=== PATIENT | female | born 1965 | race Asian ===

== ENCOUNTER 2020-01-15 17:33 | Inpatient (IN) | payer MEDICAID ==
[~2020-01-15] VITALS: Ht 154.9 cm; Wt 50.3 kg
--- NOTE | 2020-01-15 18:25 | NUR ---
HANSARD REPORTER ADMITTING NOTES PT TRANSPORTED TO UNIT AT THIS TIME VIA GURNEY BY TWO EMT PERSONNELS. REPORT RECEIVED FROM JANNETTE OWENS @ [facility]. PT AOX4. PT ABLE TO VERBALIZE NEEDS. NO SOB NOTED, NO S/S OF ANY ACUTE DISTRESS NOTED. NO C/O PAIN AT THIS TIME. RESPIRATIONS ARE EVEN AND UNLABORED WITH EQUAL RISE AND FALL IN CHEST. PT STABLE ON RA. LUNGS ARE CLEAR TO AUSCULTATION, ACTIVE BOWEL SOUNDS IN ALL FOUR QUADRANTS. ABD IS SOFT AND NON TENDER. PULSES ARE PRESENT BILATERALLY. GOOD CIRCULATION NOTED. CAPILLARY REFILL <3SECONDS. SKIN IS WARM TO TOUCH. SKIN IS INTACT. IV ACCESS NOTED IN LAC G#20, INTACT, PATENT AND FLUSHING WELL. BELONGING ACCOUNTED FOR, SIGNED BY PT AND FILED IN CHART. PT ORIENTED TO ROOM AND KNOWS TO CALL FOR ASSISTANCE BEFORE GETTING OUT OF BED. SAFETY PRECAUTION IN PLACE AND MAINTAINED AT ALL TIMES. BED IN LOWEST LOCKED POSITION, HOB ELEVATED, SIDE RAILS UP X 2, CALL LIGHT WITHIN REACH. WILL ENDORSE TO NIGHT NURSE FOR YAZ
[2020-01-15] MEDS ORDERED: MULT-594 PO (18:29)
[2020-01-15] MEDS ORDERED: ASCO-352 PO (18:29)
[2020-01-15] MEDS ORDERED: IBUP-23 PO (18:29)
--- NOTE | 2020-01-15 18:30 | NUR ---
PT ON EXTERNAL TELE CANNERY WORKER READING SR IN THE 60S WITH PVCS. WILL ENDORSE TO PIECE DYER NURSE FOR YAZ
--- NOTE | 2020-01-15 19:30 | NUR ---
PERFORATOR TYPIST OPEN NOTES PT IS WATCHING TV IN BED. A/O X4. ON RA, NO SOB/ ACUTE RESPIRATORY DISTRESS NOTED. IV IN L AC#20G IS PATENT AND INTACT. PT DENIES ANY PAIN AT THE MOMENT. BED IS IN LOWEST LOCKED POSITION WITH SIDE RAILS UP X2, SEMI FOWLERS. CALL LIGHT IS WITHIN REACH. WILL CONTINUE TO MONITOR.
--- NOTE | 2020-01-15 19:50 | NUR ---
AMMONIA SOLUTION PREPARER NOTES NOTIFIED DR. LR REGARDING DIRECT ADMIT. INFORMED HIM THAT THE PT CAME IN FROM [place] AROUND 182, Dx WAS CHEST PAIN AND HAS HX OF HTN. MD REPLIED OK. AWAITING ANY ORDERS FROM .
[2020-01-15 20:00] VITALS: BP 140/94
[2020-01-15] MEDS ORDERED: ZOLPIDEM TARTRATE 5 MG TABLET PO PRN (20:30)
[2020-01-15] MEDS ORDERED: MAG HYDROX/AL HYDROX/SIMETH 30 ML UDC PO PRN (20:30)
[2020-01-15] MEDS ORDERED: IBUPROFEN 200 MG TABLET PO PRN (20:30)
[2020-01-15] MEDS ORDERED: HYDROCODONE/APAP 5/325MG TABLET PO PRN (20:30)
[2020-01-15] MEDS ORDERED: ACETAMINOPHEN 325 MG TABLET PO PRN (20:30)
[2020-01-15] MEDS ORDERED: Z GUARD REMEDY 2 OZ OINT TP PRN (20:30)
[2020-01-15] MEDS ORDERED: MAGNESIUM HYDROXIDE 30 ML UDC PO PRN (20:30)
[2020-01-15 20:51] LABS: BASOPHILS % (AUTO) 0.2 % (0.0-2.0); EOSINOPHILS % (AUTO) 0.2 % (0.0-6.0); HEMATOCRIT 45 % (33-45); HEMOGLOBIN 14.8 g/dL (11.5-14.8); LYMPHOCYTES % (AUTO) 15.2 % (20.0-44.0); MEAN CORPUSCULAR HGB CONC 33 g/dl (31.0-36.0); MEAN CORPUSCULAR VOLUME 88 fL (82-100); MONOCYTES # (AUTO) 0.6 /CMM (0.1-1.30); MONOCYTES % (AUTO) 4.9 % (2.0-12.0); NEUTROPHILS # (AUTO) 10.4 /CMM (1.8-8.9); NEUTROPHILS % (AUTO) 79.5 % (43.0-81.0); PLATELET COUNT (AUTO) 338 /CMM (150-450); RED BLOOD CELL COUNT(AUTO) 5.08 MIL/uL (4.0-5.2); WHITE BLOOD COUNT (AUTO) 13.1 K/uL (4.3-11.0)
--- NOTE | 2020-01-15 20:55 | NUR ---
FASTENER TECHNOLOGIST NOTES PERFORMED NURSING SWALLOW SCREEN. PT HAD NO DIFFICULTIES. DID NOT COUGH/ GAG/ CHOKE WHEN DRINKING WATER. WAS ABLE TO SPEAK CLEARLY AFTER WATER INTAKE. TONGUE WAS MIDLINE. PT IS A/O X4. FACE IS SYMMETRICAL, AND ABLE TO FOLLOW COMMANDS.
[2020-01-15 21:03] LABS: CALCIUM, SERUM 9.1 mg/dL (8.5-10.1); POTASSIUM 3.6 mmol/L (3.5-5.1)
[2020-01-15 21:17] LABS: ALBUMIN 3.8 g/dL (3.4-5.0); BILIRUBIN,TOTAL 0.3 mg/dL (0.2-1.0); THYROID STIMULATING HORMONE 1.168 uIU/mL (0.358-3.74); TOTAL PROTEIN, SERUM 8.3 g/dL (6.4-8.2)
[2020-01-15] MEDS: BLOOD SUGAR DIAGNOSTIC 1 EACH STRIP IN SCH (21:42)
[2020-01-15] MEDS: LISINOPRIL (20MG) 20 MG TABLET PO SCH (22:29)
[2020-01-16] VITALS: BP 126/66
--- NOTE | 2020-01-16 | NUR ---
SUPERVISOR TYPE PHOTOGRAPHY NOTES NONADMIN ACCUCHECK Q6H DUE TO IT BEING PRIMARILY FOR NPO STATUS. HOWEVER PERFORMING ACCUCHECK ACHS PER PROTOCOL. WILL CONTINUE TO MONITOR PT.
[2020-01-16 04:00] VITALS: BP 119/71
[2020-01-16 05:53] LABS: BASOPHILS % (AUTO) 0.3 % (0.0-2.0); EOSINOPHILS % (AUTO) 1.7 % (0.0-6.0); HEMATOCRIT 40 % (33-45); HEMOGLOBIN 13.4 g/dL (11.5-14.8); LYMPHOCYTES # (AUTO) 2.5 /CMM (0.8-4.8); LYMPHOCYTES % (AUTO) 23.9 % (20.0-44.0); MEAN CORPUSCULAR HGB CONC 33 g/dl (31.0-36.0); MEAN CORPUSCULAR VOLUME 88 fL (82-100); MONOCYTES # (AUTO) 0.8 /CMM (0.1-1.30); MONOCYTES % (AUTO) 7.3 % (2.0-12.0); NEUTROPHILS # (AUTO) 7.1 /CMM (1.8-8.9); NEUTROPHILS % (AUTO) 66.8 % (43.0-81.0); PLATELET COUNT (AUTO) 293 /CMM (150-450); RED BLOOD CELL COUNT(AUTO) 4.61 MIL/uL (4.0-5.2); WHITE BLOOD COUNT (AUTO) 10.6 K/uL (4.3-11.0)
[2020-01-16] MEDS: BLOOD SUGAR DIAGNOSTIC 1 EACH STRIP IN SCH ×9 (06:07→23:56)
[2020-01-16] MEDS: ONDANSETRON HCL/PF 4 MG/2 ML VIAL IVP PRN (06:08)
[2020-01-16 06:18] LABS: CALCIUM, SERUM 8.8 mg/dL (8.5-10.1); CREATININE 0.8 mg/dL (0.6-1.3); MAGNESIUM 2.4 mg/dL (1.8-2.4); PHOSPHORUS 4.2 mg/dL (2.5-4.9); POTASSIUM 3.1 mmol/L (3.5-5.1)
--- NOTE | 2020-01-16 06:53 | NUR ---
CREDIT AND COLLECTION MANAGER CLOSE NOTES PATIENT IS LAYING IN BED. A/O X4. ON RA, NO SOB/ ACUTE RESPIRATORY DISTRESS NOTED. TELE MONITOR READING SR, 70. IV IN L AC #20G IS PATENT AND INTACT. PT DENIES ANY PAIN AT THE MOMENT. ALL ACCUCHECKS DONE. ALL MEDS GIVEN. BED IS IN LOWEST LOCKED POSITION WITH SIDE RAILS UP X3, SEMI FOWLERS. BED ALARM ON. CALL LIGHT IS WITHIN REACH. WILL ENDORSE TO AM NURSE.
--- NOTE | 2020-01-16 07:30 | NUR ---
TELE/RN OPENING NOTES Received patient in bed, A&O x 4, tagalog speaking. Denies any pain/discomfort at this time, no reports of weakness, numbness, or tingling on either side of the body. Breathing even and non-labored on RA, no SOB noted. No cardiac distress noted, on tele monitor reading SR 70s. IV access noted on L AC #20g, patent and intact, and flushing well. Bed locked to its lowest position, side rails x 2 up, call light in hand. Will continue with current medical management.
[2020-01-16 08:00] VITALS: BP 133/80
[2020-01-16] MEDS: MULTIVITAMINS,THERAGRAN 1 UDTAB TABLET PO SCH (09:00)
[2020-01-16] MEDS: LISINOPRIL (20MG) 20 MG TABLET PO SCH (09:00)
[2020-01-16] MEDS: ASCORBIC ACID 500 MG TABLET PO SCH (09:00)
--- NOTE | 2020-01-16 09:45 | NUR ---
TELE/RN NOTE Obtained patient's consent for CTCA.
[2020-01-16] MEDS: POTASSIUM CHLORIDE 20 MEQ TAB.PRT.SR PO SCH ×3 (10:00→12:00)
[2020-01-16] MEDS ORDERED: IOHEXOL-350 100 ML VIAL IV ONE (11:54)
[2020-01-16] MEDS ORDERED: IV NS 0.9% 250 ML IV ONE (11:54)
[2020-01-16] MEDS ORDERED: CT SWABBABLE VALVE TRANS SET 1 EA INFUS.SET MC ONE (11:54)
--- NOTE | 2020-01-16 11:57 | NUR ---
TELE/RN NOTE Patient picked up at 1157 for CTCA.
[2020-01-16 12:00] VITALS: BP 135/70
[2020-01-16] MEDS ORDERED: METOPROLOL TARTRATE INJ 5 MG/5 ML AMPUL IVP PRN (12:00)
[2020-01-16] MEDS ORDERED: NITROGLYCERIN 0.4 MG/TAB BOTTLE SL PRN (12:00)
[2020-01-16] MEDS ORDERED: IV NS 0.9% 500 ML IV PRN (12:00)
--- NOTE | 2020-01-16 12:00 | NUR ---
TELE/RN NOTE Dr. Jay at bedside, asked for an antithrombotic medication for patient, ordered aspirin 81 mg PO once daily and lovenox 40 mg subcutaneous once a day. Orders carried out, will continue to monitor.
[2020-01-16] MEDS ORDERED: METOPROLOL TARTRATE INJ 5 MG/5 ML AMPUL ONE ×2 (12:01→12:26)
--- NOTE | 2020-01-16 12:20 | NUR ---
TELE/RN NOTE Patient back from CTCA procedure. VSS, afebrile, no SOB noted. Denies any pain/discomfort at this time. Will continue to monitor.
--- NOTE | 2020-01-16 12:24 | NUR ---
TELE/RN NOTE Spoke with pharmacist to change patient's K replacement to IV instead of PO, since patient is NPO. Vianney states she'll add a new order for K IV replacement and to non-administer K PO replacement on EMAR. Noted.
[2020-01-16] MEDS ORDERED: POTASSIUM CL. PREMIX PERIPHER. 50 ML IV SCH (12:30)
--- NOTE | 2020-01-16 12:51 | NUR ---
TELE/RN NOTE BS noted at 58. Rechecked blood sugar, now noted at 69. Notified Dr. Jay, ordered to put back on cardiac diet. Order carried out.
--- NOTE | 2020-01-16 12:55 | NUR ---
TELE/RN NOTE Did swallow test, patient was able to sip and swallow half a cup of water without coughing or aspirating. Will continue to monitor.
--- NOTE | 2020-01-16 13:45 | NUR ---
TELE/RN NOTE Started potassium IV replacement, running at 50 ml/hr. Patient tolerating infusion well. Will continue to monitor.
--- NOTE | 2020-01-16 14:15 | NUR ---
TELE/RN NOTE Patient complaining of IV potassium infusion, states "it's hurting my arm and I don't want this anymore." Notified pharmacy to change potassium replacement back to PO since patient is not NPO anymore. Pharmacy ordered K Liliya powder 50 meq PO.
[2020-01-16] MEDS ORDERED: POTASSIUM CHLORIDE 20 MEQ POWDER PACKET GT ONE (15:00)
--- NOTE | 2020-01-16 15:36 | NUR ---
JOSSELINE spoke to the pt.'s nurse, Neelam as SW noticed no COVID-19 negative test result in [facility]. Neelam verified and stated that there is a negative COVID-19 test result for 01/15/2020 in the pt.'s pt's chart. Neelam stated that the pt. was a direct transfer from [place]. JOSSELINE asked Neelam to make charge nurse aware about above stated information. JOSSELINE left Associate Merchandiser, Selam a voicemail notifying her.
[2020-01-16 16:00] VITALS: BP 158/80
[2020-01-16] MEDS ORDERED: ENOXAPARIN SODIUM 40 MG/0.4 ML DISP.SYRIN SQ SCH (16:00)
--- NOTE | 2020-01-16 16:24 | NUR ---
SS consult requested by Sp Null MD for Stroke. The pt. is a 54 year old [place] female at [facility]. Upon SS assessment, the pt. is alert and oriented x 4. pt. is ambulating in room. Pt. was agreeable to meeting with SW. The pt. made appropriate eye contact and remained calm and cooperative throughout interview. SW completed PHQ9 assessment and pt. scored a 0. Patient denies SI/HI. Pt.'s speech and thought process are WNL. SW provided Stroke Empowerment material to pt. SW will be available as needed.
[2020-01-16] MEDS: ASPIRIN 81 MG TAB.CHEW PO SCH (17:05)
--- NOTE | 2020-01-16 19:29 | NUR ---
TELE/RN CLOSING NOTES Patient in bed, A&O x 4, all needs met and attended to. Denies any pain/discomfort throughout shift. In addition, no reports of weakness, numbness, or tingling on either side of the body. Breathing even and non-labored on RA, no SOB noted. No cardiac distress noted, on tele monitor reading SR 80s. IV access noted on L AC #20g, patent and intact, and flushing well. Fall precautions maintained. Will endorse to night shift supervisor nurse.
--- NOTE | 2020-01-16 19:30 | NUR ---
INTEGRATION TECHNICIAN OPENING NOTES RECEIVED PATIENT SITTING AT EDGE OF BED. A/OX4. TOLERATING ROOM AIR. RESPIRATIONS ARE EVEN AND UNLABORED. NO S/S SOB NOTED. NO C/O PAIN AT THIS TIME. EXTERNAL TELE MONITOR READS SINUS RHYTHM HR 76. IN NO APPARENT DISTRESS. IV ACCESS IN LAC#20 PATENT AND SALINE LOCKED. NEURO ASSESSMENT HAS ALL EXTREMITIES WNL, BILATERAL STRENGTH AND SENSATION IS GOOD. BED IS LOW AND LOCKED, HOB ELEVATED IN SEMI FOWLERS, SIDE RAILS UP X2. CALL LIGHT WITHIN REACH. WILL CONTINUE TO MONITOR.
[2020-01-16 20:00] VITALS: BP 147/77
[2020-01-17] VITALS: BP 145/76
[2020-01-17 04:00] VITALS: BP 120/59
[2020-01-17 05:58] LABS: BASOPHILS % (AUTO) 0.4 % (0.0-2.0); EOSINOPHILS % (AUTO) 1.7 % (0.0-6.0); HEMATOCRIT 41 % (33-45); HEMOGLOBIN 13.5 g/dL (11.5-14.8); LYMPHOCYTES # (AUTO) 2.1 /CMM (0.8-4.8); LYMPHOCYTES % (AUTO) 22.7 % (20.0-44.0); MEAN CORPUSCULAR HGB CONC 33 g/dl (31.0-36.0); MEAN CORPUSCULAR VOLUME 88 fL (82-100); MONOCYTES # (AUTO) 0.7 /CMM (0.1-1.30); MONOCYTES % (AUTO) 7.3 % (2.0-12.0); NEUTROPHILS # (AUTO) 6.3 /CMM (1.8-8.9); NEUTROPHILS % (AUTO) 67.9 % (43.0-81.0); PLATELET COUNT (AUTO) 286 /CMM (150-450); WHITE BLOOD COUNT (AUTO) 9.3 K/uL (4.3-11.0)
[2020-01-17 06:06] LABS: CALCIUM, SERUM 8.9 mg/dL (8.5-10.1); CREATININE 0.8 mg/dL (0.6-1.3); MAGNESIUM 2.5 mg/dL (1.8-2.4); PHOSPHORUS 3.7 mg/dL (2.5-4.9); POTASSIUM 4.5 mmol/L (3.5-5.1)
[2020-01-17] MEDS: BLOOD SUGAR DIAGNOSTIC 1 EACH STRIP IN SCH (06:59)
--- NOTE | 2020-01-17 07:15 | NUR ---
Tele/RN - Assessment Patient in bed awake, A/O x 4, denies pain, no c/o weakness on BUE/BLE, ambulates with steady gait, stable on room air, afebrile, tele shows SR, BP controlled. Saline lock on the LAC is patent, intact, with no signs of infiltration. Labs reviewed, no critical results. All needs attended. Will continue with current plan of care.
[2020-01-17 08:00] VITALS: BP 134/77
--- NOTE | 2020-01-17 08:11 | NUR ---
TIRE MOUNTER CLOSING NOTES PATIENT IS RESTING IN BED. A/OX4. TOLERATING ROOM AIR. NO RESP DISTRESS. NO PAIN NOTED THROUGHOUT SHIFT. EXTERNAL TELE MONITOR READS SINUS RHYTHM. NO DISTRESS. IV ACCESS MAINTAINED IN LAC#20. NO CHANGE IN NEURO ASSESSMENT. BED REMAINS LOW AND LOCKED, HOB ELEVATED IN SEMI FOWLERS, SIDE RAILS UP X2. CALL LIGHT WITHIN REACH. WILL ENDORSE TO NEXT SHIFT.
[2020-01-17] MEDS: ASCORBIC ACID 500 MG TABLET PO SCH (08:18)
[2020-01-17] MEDS: LISINOPRIL (20MG) 20 MG TABLET PO SCH (08:18)
[2020-01-17] MEDS: MULTIVITAMINS,THERAGRAN 1 UDTAB TABLET PO SCH (08:18)
[2020-01-17] MEDS: ASPIRIN 81 MG TAB.CHEW PO SCH (08:18)
[2020-01-17] MEDS: ONDANSETRON HCL/PF 4 MG/2 ML VIAL IVP PRN (08:39)
--- NOTE | 2020-01-17 10:00 | NUR ---
Tele/RN - MD Order Per Dr. Talavera, d/c tele monitoring and transfer to med-surg with same orders.
[2020-01-17] MEDS ORDERED: NIFE-35 PO (13:56)
[2020-01-17] MEDS ORDERED: ATOR40TA PO (13:56)
[2020-01-17] MEDS ORDERED: ASPI-1169 PO (13:56)
[2020-01-17 16:00] VITALS: BP 156/86
--- NOTE | 2020-01-17 17:00 | NUR ---
MS/RN - Notes Carotid duplex was done, result showed without evidence of stenosis, per Dr. Bess patel for discharge home.
--- NOTE | 2020-01-17 17:40 | NUR ---
MS/RN - Discharge Patient is alert and oriented X 4, afebrile, denies chest pain, on room air without distress, ambulates with steady gait, no c/o weakness, denies dizziness. Reviewed discharge instructions with patient and she verbalized full understanding of all teachings including medications and follow-up care with PCP within 1 week. Written prescription and medical resources provided. Patient was advised to seek immediate medical attention if she experience chest pain, shortness of breath, palpitations, abdominal pain/distention, intractable nausea and vomiting, diarrhea, weakness, or any other emergent concerns. All belongings with patient and she deny any missing items. Skin is intact. Discharge paperwork signed and copies were given per protocol. [facility] car by aunt Ruslan Dickey. Addendum: 01/17/20 at 1810 by ROBBIN CEDILLO RN Saline lock removed on the LAC with catheter tip intact, no redness, no swelling noted at the site.
== END 2020-01-17 17:40 | disposition home or self-care (01) | DRG 47 ==
LOC: TELE 18:18 → MED 01-17 09:43
PROVIDERS: ADMIT Family Medicine; ATTEND Internal Medicine
DX: G45.9 Transient cerebral ischemic attack, unspecified (principal); I10 Essential (primary) hypertension; Z82.49 Family history of ischemic heart disease and other diseases of the circulatory system; E87.6 Hypokalemia; E78.5 Hyperlipidemia, unspecified
CPT/HCPCS: 36415; 75574; 80048-TC; 80053-TC; 80061-TC; 82962-TC; 83735-TC; 83880; 84100-TC; 84439-TC; 84443-TC; 85025-TC; 85652-TC; 87081-TC; 92526; 92611-TC; 93307-TC; 93880-TC; 97112-TC; 97116-TC; 97530-TC; G0378; J1650; J2405; J3480; J3490; J7050; Q9967